=== PATIENT | male | born 1995 | race Caucasian/White ===

== ENCOUNTER 2017-06-03 11:19 | Emergency (ER) | payer OTHER ==
[~2017-06-03] VITALS: Ht 170.2 cm; Wt 99.8 kg
[2017-06-03 11:37] VITALS: Ht 170.2 cm; Wt 99.8 kg
[2017-06-05 13:46] LABS: RAPID PLASMA REAGIN Non Reactive (Non Reactive)
== END 2017-06-03 14:14 | disposition home or self-care (01) ==
LOC: ED 11:19
PROVIDERS: Emergency Medicine
DX: Z20.2 Contact with and (suspected) exposure to infections with a predominantly sexual mode of transmission (principal); F17.210 Nicotine dependence, cigarettes, uncomplicated; Z71.6 Tobacco abuse counseling
CPT/HCPCS: 87491; 87591; 99406; J0696